=== PATIENT | male | born 1980 | race Caucasian/White ===

== ENCOUNTER 2024-06-20 09:03 | Outpatient (AMB) | payer BC, SELFPAY ==
--- NOTE | 2024-06-20 09:09 | HO.SPINEOV ---
Intake Visit Reasons: lower back pain/bulging disc Intake Note: Mr. Greene is here today c/o low back pain. Facilities Technician Required: No Assessment & Plan Assessment & Plan (1) Lumbar disc herniation: Code(s): M51.26 - Other intervertebral disc displacement, lumbar region Category: Medical Plan Mr Greene is a 44-year-old male with a previous history an left L4-5 diskectomy done here at [facility] back in 2000, we had been doing well from the standpoint of his low back until about 2+ months ago when he slipped on a mattress for about 4 nights and experienced persistent back pain and right buttock pain after that. The back pain escalated over the course of a month and then about 3 weeks ago or so he experienced in significant increase in the leg pain, shooting down into his hamstring with numbness of his anterior tibial region and his foot. He ended up in the emergency room twice. He was treated with what sounds like IV Toradol and number of different narcotic medications. Over the course of 5-6 days the severe unrelenting pain got better, but he has to a point now where he has plateaued a bit. Specifically, the pain is for the most part gone other than some mild discomfort, but he continues to feel some weakness in the leg and the numbness in the anterior tibial region. He underwent an MRI showing a herniated disc at L4-5 on the right and came in for evaluation. To this point he has not been involved in any specific conservative treatment other than just ibuprofen, Tylenol, gabapentin and watchful waiting with tincture of time. No cauda equina symptoms. PMH: He has a history of alcoholism, he has been recovery for many years, history of depression. Herniated disc surgery at L4-5 on the left in 2000 Social hx: He does vape, but does not use any alcohol or recreational drugs. Medications: Duloxetine, lamotrigine, gabapentin Allergies: Seroquel and trazodone Physical exam: He is awake alert oriented no acute distress, he walks with a normal gait, strength in bilateral lower extremities is normal, diminished right patellar reflex. Straight leg raise negative. Imaging review: Lumbar MRI done June 2024 it [facility] shows a herniated disc on the right at L4-5 which is migrated cranially behind the body of L4 compressing the right L4 nerve root, and narrowing the lateral recess near the L5 nerve root. Impression: 44-year-old male with herniated disc at L4-5 on the right, presents with resolving pain consistent with what is likely the process of the disc reabsorbed being on its own. He has been left with a feeling of weakness in the right leg and numbness in the anterior tibial region. I explained to him that the natural history of herniated disc is that 90% of them will resolve on their own if given enough time. The symptoms of numbness in the feeling of weakness unfortunately his likely a side effect of the original herniation and it is well known this will either recover with or without surgery so in and of itself is not an indication to operate. I think we should just give this a little more time and I suspect it will go away on its own as indicated by the resolving pain. I told him to touch base with me in a few weeks so we could see how things are going. I do not think I would start therapy or do a cortisone injection at this time as he is already in the process of healing and at current he has minimal discomfort. Thank you for allowing us to care for your patient. The total time spent with this visit with this patient was 45 minutes reviewing history, physical exam, lumbar imaging review, and implementation of treatment plan or further diagnostic testing Trent Cobb MD,PhD [facility] Coding Level of Care Code New Pt Level 4 (67639) Diagnoses Lumbar disc herniation M51.26
== END 2024-06-20 09:49 | disposition home or self-care (01) ==
PROVIDERS: PCP Pediatrics; Visit Provider Physician Assistant
DX: M51.26 Other intervertebral disc displacement, lumbar region (principal)
CPT/HCPCS: 99204

== ENCOUNTER → 2024-06-20 09:03 | Outpatient (BNVA) | payer BC, SELFPAY | PROVIDERS: PCP Pediatrics; Visit Provider Physician Assistant ==